=== PATIENT | male | born 1980 | race Caucasian/White ===

== ENCOUNTER 2016-12-27 00:34 | Emergency (ER) | payer OTHER ==
[~2016-12-27] VITALS: Ht 175.3 cm; Wt 63.0 kg
[~2016-12-27 00:34] MED LIST: HYDR-4197 PO; LEVA750T PO; METO5SOL2 PO
[2016-12-27 00:39] VITALS: BP 114/67; PULSE 88; RESP 20; O2SAT 96
[2016-12-27 00:53] VITALS: BP 114/67; PULSE 88; RESP 20; TEMP 98.2; O2SAT 96
[2016-12-27] MEDS ORDERED: traMADol HCL 50 MG TAB PO ONE (01:00)
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
[2016-12-27] MEDS ORDERED: TETANUS/DIPHTHERIA TOXOID ADULT 0.5 ML VIAL IM ONE (02:15)
[2016-12-27] MEDS ORDERED: ACETAMINOPHEN/HYDROcodone 325 MG/5 MG TAB PO ONE (02:15)
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
[2016-12-27 03:04] VITALS: BP 121/75
== END 2016-12-27 04:08 ==
LOC: NEPE 00:34
DX: S01.81XA Laceration without foreign body of other part of head, initial encounter (principal); S80.212A Abrasion, left knee, initial encounter; F17.200 Nicotine dependence, unspecified, uncomplicated; Y04.8XXA Assault by other bodily force, initial encounter; Z23 Encounter for immunization
CPT/HCPCS: 12011; 70450; 70486; 72125; 73564; 90714

== ENCOUNTER 2017-03-01 09:40 | Emergency (ER) | payer SELFPAY ==
[~2017-03-01] VITALS: Ht 177.8 cm; Wt 63.5 kg
[2017-03-01 09:42] VITALS: BP 133/73; PULSE 88; RESP 20; TEMP 98.8; O2SAT 98
--- NOTE | 2017-03-01 10:00 | PD ---
HPI Chief Complaint: Skin Problem Time Seen by Provider: 09:54 Travel History International Travel<30 days: No Contact w/Intl Traveler<30days: No Traveled to known affect area: No History of Present Illness HPI 36-year-old homeless male with history of opioid IV drug abuse here with complaint of right upper extremity swelling. Patient has noticed approximate 2- 3 days of redness and swelling over the inner aspect of the bicep region. He admits to injecting primarily in the left upper extremity but occasionally in the right upper extremity. He denies any fevers or chills. He notes redness, swelling that has increased. Moderate associated pain. He has not lost any function of the arm and denies any numbness or tingling. PFSH Past Medical History Cardiovascular Problems: No Diminished Hearing: No Genitourinary: No Musculoskeletal: Yes (Back, neck pain 2012) Neurologic: No Respiratory: No Immunizations Current: Yes Past Surgical History Eye Surgery: Yes (LEFT EYE LENS IMPLANT) Other Surgery: Yes (Left foot surgery Aug 2016) Social History Alcohol Use: Yes (6 PACK DAILY ) Tobacco Use: Yes (1 - 1 1/2 PPD) Substance Use: Yes (opioid IV drug abuse) Allergies-Medications (Allergen,Severity, Reaction): Coded Allergies: No Known Allergies (Verified , 03/01/17) Reported Meds & Prescriptions Reported Meds & Active Scripts Active No Active Prescriptions or Reported Medications Review of Systems Except as stated in HPI: all other systems reviewed are Neg Physical Exam Narrative GENERAL: Thin male in no acute distress SKIN: Tract flores in the bilateral antecubital. Erythema and warmth, induration. No obvious fluctuance to the right inner biceps region. HEAD:Normocephalic. EYES:. No injection or drainage. ENT: Mucous membranes pink and moist. NECK: Supple CARDIOVASCULAR: Regular rate and rhythm. No murmur appreciated. RESPIRATORY: No accessory muscle use. Clear to auscultation. Breath sounds equal bilaterally. GASTROINTESTINAL: Abdomen soft, non-tender, nondistended. MUSCULOSKELETAL: No obvious deformities. No edema. Range of motion of the right upper extremity and strength is intact albeit with some pain. NEUROLOGICAL: Awake and alert. Normal speech. PSYCHIATRIC: Appropriate mood and affect; insight and judgment normal. Data Data Last Documented VS Vital Signs Date Time Temp Pulse Resp B/P Pulse Ox O2 Delivery O2 Flow Rate FiO2 03/01/17 09:42 98.8 88 20 133/73 98 Room Air Orders Ed Poc Ultrasound (03/01/17 09:57) Lidocaine 1% Inj (50 Ml) (Xylocaine 1% I (03/01/17 10:30) Ceftriaxone Inj (Rocephin Inj) (03/01/17 10:30) Ketorolac Inj (Toradol Inj) (03/01/17 10:30) MDM Medical Decision Making Medical Screen Exam Complete: Yes Emergency Medical Condition: Yes Medical Record Reviewed: Yes Differential Diagnosis 36-year-old male with history of IV drug abuse here with swelling and redness to the right upper extremity. Differential includes cellulitis versus abscess less likely DVT. Narrative Course bedside ultrasound performed showing small abscess surrounding patient's brachial veins and antecubital veins. Given the location of the abscess I was not comfortable incising and draining and therefore the abscess was aspirated under ultrasound guidance with production of 2 mL of purulent fluid which was sent for wound culture. Patient was given 1 g of Rocephin IM. He he is homeless and does not have the financial means to afford any antibiotics and therefore requests something free. He was given prescription for Bactrim and amoxicillin. Though this is not ideal, patient was informed of this. He was also given prescription of Keflex which can be filled for $4 at [facility] once he gets his paycheck on Wednesday. Patient was encouraged to return to the ER for the warning signs discussed. Procedures Procedure Narrative Patient consented to bedside ultrasound. Linear probe was used in transverse and sagittal views in the right upper extremity over the area of interest that the inner aspect of the bicep region revealing small pocket of abscess surrounding brachial and antecubital vein and arteries. This was aspirated with ultrasound guidance with 18-gauge needle with production of 2 mL of purulent fluid. Diagnosis Primary Impression: Abscess of right upper extremity Additional Impression: Right arm cellulitis Referrals: Primary Care Physician as needed Additional Instructions: Fill the Bactrim. This is free at [facility]. Fill the amoxicillin. This is free at [facility]. The amoxicillin is inferior to the Keflex. I encourage you to fill the Keflex as soon as you can. Once filling the Keflex, you can stop the amoxicillin. Fill the Keflex as soon as possible. This is $4 at [facility]. Return to the emergency department for the warning signs discussed. Med/Other Pt SpecificInfo: Prescription(s) given Scripts Cephalexin (Keflex)500 Mg [id number] Mg PO Q8H 7 Days Ref 0 Prov:Elaine Beasley MD 03/01/17 Amoxicillin 500 Mg [id number] Mg PO TID 7 Days Ref 0 Prov:Elaine Beasley MD 03/01/17 Sulfamethoxazole-Trimethoprim (Bactrim DS)800-160 Mg Tab1 Tab PO BID #14 TAB Ref 0 Prov:Elaine Beasley MD 03/01/17 Disposition: 01 DISCHARGE HOME Condition: Stable Elaine Beasley MD Mar 01, 2017 10:00
[2017-03-01] MEDS ORDERED: CEPH-460 PO (10:26)
[2017-03-01] MEDS ORDERED: AMOX500T PO (10:26)
[2017-03-01] MEDS ORDERED: BACT800T5 PO (10:26)
[2017-03-01] MEDS ORDERED: LIDOCAINE HCL 1% 50 ML VIAL IM ONE (10:30)
[2017-03-01] MEDS ORDERED: KETOROLAC TROMETHAMINE 60 MG/2 ML (IM) VIAL IM ONE (10:30)
== END 2017-03-01 11:35 | disposition home or self-care (01) ==
LOC: NEPD 09:40
DX: L02.413 Cutaneous abscess of right upper limb (principal); L03.113 Cellulitis of right upper limb; F17.210 Nicotine dependence, cigarettes, uncomplicated; F11.10 Opioid abuse, uncomplicated; B95.4 Other streptococcus as the cause of diseases classified elsewhere; Z59.0 Homelessness
CPT/HCPCS: 10160; 87070; 87077; 87185; 87205; 96372; 99283; J0696; J1885

== ENCOUNTER 2017-05-30 12:37 | Emergency (ER) | payer SELFPAY ==
[~2017-05-30] VITALS: Ht 180.3 cm; Wt 65.0 kg
[~2017-05-30 12:37] MED LIST changes: +AMOX500T PO; +BACT800T5 PO; +CEPH-460 PO; -HYDR-4197 PO; -LEVA750T PO; -METO5SOL2 PO
[2017-05-30 12:38] VITALS: BP 128/70; PULSE 99; RESP 20; TEMP 98; O2SAT 98
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
[2017-05-30] MEDS ORDERED: IBUP800T23 PO (13:06)
[2017-05-30] MEDS ORDERED: BACT800T5 PO (13:06)
[2017-05-30] MEDS: IBUPROFEN 800 MG TAB PO ONE ×2 (13:08→13:15)
== END 2017-05-30 13:35 | disposition home or self-care (01) ==
LOC: NEPK 12:37
DX: L97.512 Non-pressure chronic ulcer of other part of right foot with fat layer exposed (principal); B07.0 Plantar wart; F17.200 Nicotine dependence, unspecified, uncomplicated; Z79.899 Other long term (current) drug therapy
CPT/HCPCS: 99283

== ENCOUNTER 2017-09-16 11:32 | Emergency (ER) | payer SELFPAY ==
[~2017-09-16] VITALS: Ht 180.3 cm; Wt 65.0 kg
[~2017-09-16 11:32] MED LIST changes: +IBUP1TAB7 PO
[2017-09-16 11:34] VITALS: BP 125/68; PULSE 94; RESP 15; TEMP 98.5; O2SAT 98
[2017-09-16] MEDS ORDERED: CEPH-460 PO (11:58)
[2017-09-16] MEDS ORDERED: IBUP1TAB7 PO (11:58)
[2017-09-16] MEDS ORDERED: BACT800T5 PO (11:58)
--- NOTE | 2017-09-16 11:59 | PD ---
HPI Chief Complaint: Skin Problem Time Seen by Provider: 11:45 Travel History International Travel<30 days: No Contact w/Intl Traveler<30days: No Traveled to known affect area: No History of Present Illness HPI 37-year-old male presents to emergency Department with complaint of swelling and redness to his right foot 3 days with worsening yesterday. Reports an area between his right fourth and fifth toes that blistered up 3 days ago. Says he has a similar area between his left fourth and fifth toes, but not as bad as his right foot. Denies fever, vomiting. Denies paresthesias, loss of sensation 26 range of motion, decreased strength to bilateral lower extremities. Denies IV drug use. Up-to-date on tetanus vaccination. Has taken Tylenol for symptom management. Describes pain as a throbbing sensation. Rates pain 9/10. Pain is worse with palpation and ambulation. No known allergies. Has no medical complaints. No other modifying factors or associated signs and symptoms. PFSH Past Medical History Cardiovascular Problems: No Diminished Hearing: No Genitourinary: No Musculoskeletal: Yes (Back, neck pain 2012) Neurologic: No Respiratory: No Immunizations Current: Yes Past Surgical History Eye Surgery: Yes (LEFT EYE LENS IMPLANT) Other Surgery: Yes (Left foot surgery Aug 2016) Social History Alcohol Use: Yes (6 PACK DAILY ) Tobacco Use: Yes (1 - 11 15/2 PPD) Substance Use: Yes (opioid IV drug abuse) Allergies-Medications (Allergen,Severity, Reaction): Coded Allergies: No Known Allergies (Verified Adverse Reaction, Unknown, 09/16/17) Reported Meds & Prescriptions Reported Meds & Active Scripts Active Ibuprofen 800 Mg Tab 800 Mg PO Q6HR PRN Keflex (Cephalexin) 500 Mg Cap 500 Mg PO Q6H 10 Days Bactrim DS (Sulfamethoxazole-Trimethoprim) 800-160 Mg Tab 1 Tab PO BID 10 Days Review of Systems Except as stated in HPI: all other systems reviewed are Neg Physical Exam Narrative GENERAL: Well-nourished, well-developed male patient, in no acute distress; afebrile, nontoxic-appearing SKIN: Warm and dry. Area between right and left fourth and fifth toes with moist, fungal appearing rash. 2 closed blisters noted to the dorsal aspect of the right fifth toe. Right foot with area of edema, erythema, and warmth to touch to the dorsal aspect. Bilateral lower exudate or supple and nontender 2+ pedal pulse and sensory intact. No lymphangitis. HEAD: Atraumatic. Normocephalic. EYES: Pupils equal and round. No scleral icterus. No injection or drainage. ENT: Mucosa pink and moist. Airway patent. NECK: Trachea midline. CARDIOVASCULAR: Regular rate. RESPIRATORY: No accessory muscle use. GASTROINTESTINAL: Flat. MUSCULOSKELETAL: No obvious deformities. No clubbing. No cyanosis. No edema. NEUROLOGICAL: Awake and alert. Oriented 3. No obvious cranial nerve deficits. Motor grossly within normal limits. Normal speech. PSYCHIATRIC: Appropriate mood and affect; insight and judgment normal. Data Data Last Documented VS Vital Signs Date Time Temp Pulse Resp B/P (MAP) Pulse Ox O2 Delivery O2 Flow Rate FiO2 09/16/17 12:15 09/16/17 11:45 20 09/16/17 11:34 98.5 94 98 Orders Orders Ibuprofen (Motrin) (09/16/17 12:00) Ed Discharge Order (09/16/17 11:59) [facility] Medical Decision Making Medical Screen Exam Complete: Yes Emergency Medical Condition: Yes Medical Record Reviewed: Yes Differential Diagnosis Athletes foot, cellulitis, infected wound, infected blisters Narrative Course 37-year-old male with cellulitis of the right foot secondary to possible infected blisters over athlete's foot. Patient is afebrile and nontoxic- appearing. Denies fever, vomiting. Blisters were drained and wound culture obtained. See my procedure note. Area of cellulitis to the right foot marked with a surgical marker. Ibuprofen administered in the ER. Keflex, Bactrim, ibuprofen prescribed for home. Instructed patient to return to the emergency department in 48 hours for recheck. Instructed patient to follow up with primary care provider. Patient verbalizes understanding and agreement with treatment plan. Patient is medically cleared and stable for discharge. Discussed reasons to return to the emergency department. Patient agrees with treatment plan. The patients vital signs are stable and the patient is stable for outpatient follow-up and treatment. Patient discharged home, stable and in no acute distress. Diagnosis Primary Impression: Cellulitis of right foot Referrals: [facility] Primary Care Physician Patient Instructions: Acute Wound Care (DC), Athlete's Foot (ED), General Instructions Additional Instructions: Complete full course of antibiotics; Bactrim is free of [facility]; Keflex a $10 at [facility] Warm compresses to the affected area Keep area clean and dry Ibuprofen or Tylenol as directed and as needed for pain and inflammation Athlete's foot spray 2 feet as directed and as needed for fungal suspected infection Follow-up with primary care provider Return to emergency department immediately with worsening of symptoms Med/Other Pt SpecificInfo: Prescription(s) given Scripts Ibuprofen (Ibuprofen) 800 Mg Tab 800 MG PO Q6HR Y for PAIN, #30 TAB 0 Refills Prov: Candice Paiz 09/16/17 Cephalexin (Keflex) 500 Mg Cap 500 MG PO Q6H for Infection for 10 Days, #40 CAP 0 Refills Prov: Candice Paiz 09/16/17 Sulfamethoxazole-Trimethoprim (Bactrim DS) 800-160 Mg Tab 1 TAB PO BID for Infection for 10 Days, #20 TAB 0 Refills Prov: Candice Paiz 09/16/17 Disposition: 01 DISCHARGE HOME Condition: Stable Candice Paiz Sep 16, 2017 11:59
[2017-09-16] MEDS ORDERED: IBUPROFEN 800 MG TAB PO ONE (12:00)
== END 2017-09-16 12:17 | disposition home or self-care (01) ==
LOC: NEPD 11:32
DX: L03.115 Cellulitis of right lower limb (principal); B95.62 Methicillin resistant Staphylococcus aureus infection as the cause of diseases classified elsewhere; F17.200 Nicotine dependence, unspecified, uncomplicated
CPT/HCPCS: 10140; 86403; 87070; 87186